=== PATIENT | female | born 1985 ===

== ENCOUNTER 2018-06-01 13:12 | Emergency (ER) | payer OTHER ==
--- NOTE | 2018-06-01 13:54 | UC ---
Upper Extremity HPI - HPI Summary HPI Summary: 32 yo female presents with RIGHT elbow pain since yesterday. She tells me that yesterday she was walking on uneven ground and tripped. Fell onto her left side but rolled onto her right elbow. Elbow has been painful since. Was very painful last night, but is much better this morning. She has FROM without pain. She is most concerned about a fracture because she has been told she has early osteopenia. She has not been RICEing or taking anything OTC for her symptoms. Denies numbness or tingling. - History of Current Complaint Stated Complaint: R ARM COMPLAINT Time Seen by Provider: 06/01/18 13:53 Hx Obtained From: Patient Onset/Duration: Sudden Onset Severity Initially: Moderate Severity Currently: Mild Pain Intensity: 2 Pain Scale Used: 0-10 Numeric - Allergies/Home Medications Allergies/Adverse Reactions: Allergies Allergy/AdvReac Type Severity Reaction Status Date / Time No Known Allergies Allergy Verified 06/01/18 14:03 Home Medications: Home Medications Amphetamine MIXED SALT TAB* [Adderall TAB*] 10 mg PO DAILY 06/01/18 [History Confirmed 06/01/18] Sertraline* [Zoloft*] 12.5 mg PO DAILY 06/01/18 [History Confirmed 06/01/18] PMH/Surg Hx/FS Hx/Imm Hx - Additional Past Medical History Additional PMH: ADHD Psychological History: Anxiety, Depression - Surgical History Surgical History: None - Family History Known Family History: Positive: None - Social History Occupation: Employed Full-time Lives: With Family Alcohol Use: None Substance Use Type: None Smoking Status (MU): Never Smoked Tobacco Review of Systems All Other Systems Reviewed And Are Negative: Yes Constitutional: Positive: Negative Skin: Positive: Negative Respiratory: Positive: Negative Cardiovascular: Positive: Negative Neurovascular: Positive: Negative Musculoskeletal: Positive: Other: - Right elbow pain Neurological: Positive: Negative Psychological: Positive: Negative Physical Exam - Summary Physical Exam Summary: GENERAL: NAD. WDWN. No pain distress. SKIN: No rashes, sores, lesions, or open wounds. CHEST: No accessory muscle use. Breathing comfortably and in no distress. CV: Pulses intact radial and ulnar. Cap refill <2seconds MSK: RIGHT ELBOW: FROM without pain. Mild TTP supracondylar region. 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 No edema or obvious bony deformities. NEURO: Alert. Sensations intact hand and all fingers. PSYCH: Age appropriate behavior. Triage Information Reviewed: Yes Vital Signs: Vital Signs: Temp Pulse Resp BP Pulse Ox 98.8 F 78 16 107/70 99 06/01/18 13:53 06/01/18 13:53 06/01/18 13:53 06/01/18 13:53 06/01/18 13:53 Vital Signs Reviewed: Yes Upper Extremity Course/Dx - Course Course Of Treatment: XR: IMPRESSION: NO ACUTE OSSEOUS INJURY. IF SYMPTOMS PERSIST, RECOMMEND REPEAT IMAGING. Pt is feeling much better today. Advised to RICE and take ibuprofen for discomfort. F/u prn. - Differential Dx/Diagnosis Provider Diagnoses: Right elbow contusion Discharge - Sign-Out/Discharge Documenting (check all that apply): Patient Departure All imaging exams completed and their final reports reviewed: Yes - Discharge Plan Condition: Stable Disposition: HOME Patient Education Materials: Contusion in Adults (ED) Referrals: No Primary Care Phys,NOPCP [Primary Care Provider] - Additional Instructions: If you develop a fever, shortness of breath, chest pain, new or worsening symptoms - please call your PCP or go to the ED. 1) Rest, Ice, and elevate your elbow as much as possible 2) May take tylenol or ibuprofen every 6-8hours as needed for pain - Billing Disposition and Condition Condition: STABLE Disposition: Home
[2018-06-01 14:03] VITALS: BP 107/70
== END 2018-06-01 14:30 | disposition home or self-care (01) ==
LOC: UCEAST 13:12
DX: S50.01XA Contusion of right elbow, initial encounter (principal); W01.0XXA Fall on same level from slipping, tripping and stumbling without subsequent striking against object, initial encounter; Y92.9 Unspecified place or not applicable
CPT/HCPCS: 99201; G0463